=== PATIENT | female | born 1980 | race Caucasian/White ===

== ENCOUNTER 2017-01-22 16:01 | Emergency (ER) | payer BC ==
[2017-01-22 20:06] VITALS: BP 124/85
--- NOTE | 2017-01-25 14:39 | ED ---
Arturo Carrion Benjamin, scribed for Jg Burger MD on 01/22/17 at 2009 . Syncope/Near Syncope - HPI Summary HPI Summary: 36yo female c/o episode of hot flashes that made her diaphoretic, nauseous, and near syncopal around 2pm today. Pt states that she has been getting similar episodes since 2008. episode lasts about 15-20 minutes. also reports fatigue. Fhx of brain and abdominal aneurysms, CAD, DM, HTN, and DM. Former smoker. - History Of Current Complaint Chief Complaint: EDSyncope Time Seen by Provider: 01/22/17 19:30 Hx Obtained From: Patient, Family/Commercial Horticulture Instructor Onset/Duration: Sudden Onset, Lasting Minutes Context: Witnessed Activity At Onset: At Rest Associated Head Trauma: No Aggravating Factor(s): Nothing Alleviating Factor(s): Nothing Associated Signs And Symptoms: Diaphoresis, Other - hot flashes, nausea, - Allergies/Home Medications Allergies/Adverse Reactions: Allergies Allergy/AdvReac Type Severity Reaction Status Date / Time Bee Venom Allergy Anaphylatic Verified 01/22/17 16:23 Shock PMH/Surg Hx/FS Hx/Imm Hx Endocrine/Hematology History: Denies: Hx Diabetes, Hx Thyroid Disease Cardiovascular History: Denies: Hx Hypertension Respiratory History: Denies: Hx Asthma, Hx Chronic Obstructive Pulmonary Disease (COPD) GI History: Denies: Hx Ulcer - Surgical History Surgery Procedure, Year, and Place: acl repair last may Infectious Disease History: No Infectious Disease History: Denies: Hx Hepatitis, Hx Human Immunodeficiency Virus (HIV), Traveled Outside the [place] in Last 30 Days - Family History Known Family History: Positive: Cardiac Disease, Hypertension, Diabetes, Other - aneurysms in abdomen and brain - Social History Occupation: Employed Full-time Lives: With Family Alcohol Use: None Substance Use Type: Reports: None Smoking Status (MU): Former Smoker Type: Cigarettes Amount Used/How Often: 1/2 - 1 ppd Have You Smoked in the Last Year: Yes Review of Systems Constitutional: Negative Positive: Skin Diaphoresis Eyes: Negative ENT: Negative Cardiovascular: Negative Respiratory: Negative Positive: Nausea Genitourinary: Negative Musculoskeletal: Negative Skin: Negative Positive: Syncope Psychological: Normal All Other Systems Reviewed And Are Negative: Yes Physical Exam Triage Information Reviewed: Yes Vital Signs On Initial Exam: Initial Vitals Temp Pulse Resp BP Pulse Ox 98 F 74 16 127/71 100 01/22/17 16:23 01/22/17 16:23 01/22/17 16:23 01/22/17 16:23 01/22/17 16:23 Vital Signs Reviewed: Yes Appearance: Positive: Well-Appearing, No Pain Distress, Well-Nourished Skin: Positive: Warm, Skin Color Reflects Adequate Perfusion, Dry Head/Face: Positive: Normal Head/Face Inspection Eyes: Positive: Normal ENT: Positive: Normal ENT inspection Neck: Positive: Supple, Nontender Respiratory/Lung Sounds: Positive: Clear to Auscultation, Breath Sounds Present Cardiovascular: Positive: RRR, Pulses are Symmetrical in both Upper and Lower Extremities. Negative: Murmur - no murmurs elucidated with valsalva or squat Abdomen Description: Positive: Nontender, Soft Bowel Sounds: Positive: Present Musculoskeletal: Positive: Strength/ROM Intact Neurological: Positive: Sensory/Motor Intact, Alert, Oriented to Person Place, Time, CN Intact II-III Psychiatric: Positive: Affect/Mood Appropriate - [place] Coma Scale Coma Scale Total: 15 Diagnostics - Vital Signs Vital Signs Temp Pulse Resp BP Pulse Ox 01/22/17 16:23 98 F 74 16 127/71 100 - Laboratory Lab Statement: Any lab studies that have been ordered have been reviewed, and results considered in the medical decision making process. Course/Dx Course Of Treatment: Ms. Staley was stable here in the ED. She reports that she has these episodes frequently and wants no W/U at this time. I will respect her wishes. - Diagnoses Provider Diagnoses: Vaso vagal episode Discharge - Discharge Plan Condition: Stable Disposition: HOME Patient Education Materials: Syncope (ED) Referrals: No Primary Care Phys,NOPCP [Primary Care Provider] - The documentation as recorded by the Arturo burgos Benjamin accurately reflects the service I personally performed and the decisions made by me, Jg Burger MD.
== END 2017-01-22 20:07 | disposition home or self-care (01) ==
LOC: ED 16:01
DX: R55 Syncope and collapse (principal); R61 Generalized hyperhidrosis
CPT/HCPCS: 93005; 99282